=== PATIENT | female | born 1955 | race African-American/Black ===

== ENCOUNTER 2023-03-09 07:59 | Observation (INO) ==
--- NOTE | 2023-01-29 14:36 | PAT Medication Instructions ---
Medication Instructions Date of Service January 29, 2023 Home Medications Fish Oil 1 cap PO QAM albuterol sulfate 90 mcg/actuation aerosol inhaler 2 puff inhalation QID PRN Shortness Of Breath amiloride 5 mg-hydrochlorothiazide 50 mg tablet 0.5 tab PO QAM ascorbic acid (vitamin C) 1,000 mg tablet (Vitamin C) 1 g PO QAM fluticasone propionate 50 mcg/actuation nasal spray,suspension 2 spray intranasal DAILY PRN Congestion irbesartan 150 mg tablet 150 mg PO QAM metoprolol succinate 50 mg tablet,extended release 24 hr 25 mg PO QAM montelukast 10 mg tablet (Singulair) 10 mg PO QAM multivit-iron 18 mg-folic acid 400 mcg-calcium 500 mg-minerals tablet (Women's One Daily) 1 tab PO QAM omega-3 fatty acids 1,000 mg PO QAM semaglutide 1 mg/dose (4 mg/3 mL) subcutaneous pen injector (Ozempic) 1 mg subcut Q7D vitamin B complex 1 tab PO QAM Continue as directed semaglutide 1 mg/dose (4 mg/3 mL) subcutaneous pen injector (Ozempic) 1 mg subcut Q7D STOP taking 2 weeks before surgery Fish Oil 1 cap PO QAM omega-3 fatty acids 1,000 mg PO QAM DO NOT take the morning of surgery amiloride 5 mg-hydrochlorothiazide 50 mg tablet 0.5 tab PO QAM ascorbic acid (vitamin C) 1,000 mg tablet (Vitamin C) 1 g PO QAM irbesartan 150 mg tablet 150 mg PO QAM multivit-iron 18 mg-folic acid 400 mcg-calcium 500 mg-minerals tablet (Women's One Daily) 1 tab PO QAM vitamin B complex 1 tab PO QAM Take morning of surgery With a small sip of water, OTHERWISE NOTHING TO EAT OR DRINK AFTER MIDNIGHT: albuterol sulfate 90 mcg/actuation aerosol inhaler 2 puff inhalation QID PRN Shortness Of Breath (use if needed; please bring with you to hospital day of surgery if possible) fluticasone propionate 50 mcg/actuation nasal spray,suspension 2 spray intranasal DAILY PRN Congestion (if needed) metoprolol succinate 50 mg tablet,extended release 24 hr 25 mg PO QAM montelukast 10 mg tablet (Singulair) 10 mg PO QAM Take evening before surgery albuterol sulfate 90 mcg/actuation aerosol inhaler 2 puff inhalation QID PRN Shortness Of Breath (if needed) fluticasone propionate 50 mcg/actuation nasal spray,suspension 2 spray intrana osmin DAILY PRN Congestion (if needed) Other Notes If you have any questions please call us at [phone] or [phone] or [phone] or [phone]
--- NOTE | 2023-01-31 10:37 | Anesthesiology Consultation ---
Date of Service January 31, 2023 Assessment & Plan (1) Encounter for pre-operative examination: - Check BSG AM DOS - Outpatient joint assessment: Pt currently scheduled for inpatient pathway. If surgeon requests review for outpatient joint pathway, patient is an acceptable candidate for outpatient joint program from anesthesia standpoint pending surgeon's office assessment that patient is motivated, has good support and completes [facility] preop requirements. - COVID screening: Per assessment on 01/31: No known COVID-19 positive contacts. Travel screen- negative since 12/2022. Patient was Covid positive 01/03/23 (home test), shortness of breath- treated w/paxlovid- SOB has resolved. Does also have chronic allergy-related cough, unchanged. Covid test done at PAT visit 01/31/23- result was negative. - Cardiology visit (03/28/22): "06/2018 ECHO- LVEF 55-60%, AoR 3cm, PaP 24mmhg, DD1.. Dyspneawith exertion with wearing a mask, with concurrent asthma, with famhx SCD, monitor.. Palpitationslikely PAC's/PVC's by description, currently asymptomatic, monitor.. Hypertension.. Controlled.. Dyslipidemiawith no clinical ASCVD but DM.. Declining statins, continue risk factor modification with weight loss, diet and exercise" > One year f/u recommended. Chart Review Chart Review: Acceptable Risk for Surgery and Patient seen in Pre Admission Testing Teaching & Discussion Pre-Anesthesia Teaching/Discussion Notes: Instructed NPO after midnight before surgery,except medications with 15 cc of water. Medication instructions provided according to the PAT guidelines. History Surgery Operation Date: 03/09/23 07:00 Proposed Procedures p Right Total Knee Arthroplasty - Jose Alberto Valente MD Height/Weight Height: 5 ft 4 in Weight: 87.7 kg Allergies Allergy/AdvReac Type Severity Reaction Status Date / Time amlodipine [From Norvasc] Allergy Unknown throat Verified 01/29/23 13:03 swelling Iodinated Contrast Media Allergy Unknown throat Verified 01/29/23 13:03 swelling ofloxacin [From Floxin] Allergy Unknown trouble Verified 01/29/23 13:03 breathing; throat swelling Penicillins Allergy Unknown syncope; Verified 01/29/23 13:03 shortness of breath aspirin AdvReac Unknown bloody Verified 01/31/23 10:52 diarrhea metformin AdvReac Unknown bloody Verified 01/31/23 10:52 diarrhea Medications Home Medications Medication Instructions Recorded Confirmed Last Taken Fish Oil 1 cap PO QAM 01/29/23 01/29/23 Unknown albuterol sulfate 90 mcg/actuation 2 puff inhalation QID PRN 01/29/23 01/29/23 Unknown aerosol inhaler Shortness Of Breath amiloride 5 mg-hydrochlorothiazide 0.5 tab PO QAM 01/29/23 01/29/23 Unknown 50 mg tablet ascorbic acid (vitamin C) 1,000 mg 1 g PO QAM 01/29/23 01/29/23 Unknown tablet (Vitamin C) fluticasone propionate 50 2 spray intranasal DAILY PRN 01/29/23 01/29/23 Unknown mcg/actuation nasal Congestion spray,suspension irbesartan 150 mg tablet 150 mg PO QAM 01/29/23 01/29/23 Unknown metoprolol succinate 50 mg 25 mg PO QAM 01/29/23 01/29/23 Unknown tablet,extended release 24 hr montelukast 10 mg tablet 10 mg PO QAM 01/29/23 01/29/23 Unknown (Singulair) multivit-iron 18 mg-folic acid 400 1 tab PO QAM 01/29/23 01/29/23 Unknown mcg-calcium 500 mg-minerals tablet (Women's One Daily) omega-3 fatty acids 1,000 mg PO QAM 01/29/23 01/29/23 Unknown semaglutide 1 mg/dose (4 mg/3 mL) 1 mg subcut Q7D 01/29/23 01/29/23 Unknown subcutaneous pen injector (Ozempic) vitamin B complex 1 tab PO QAM 01/29/23 01/29/23 Unknown Past Medical History Medical History Asthma due to seasonal allergies Environmental allergies Chronic cough r/t environmental allergies Degenerative arthritis of knee, bilateral Diabetes History of conjunctivitis 11/2022, prescribed eye drops by PCP- resolved History of COVID-19 01/03/23 (home test), shortness of breath- treated w/paxlovid History of palpitations Follows with Dr. Keys Suspected PACs/PVCs per cardiology, recommendation to monitor Hx of cancer of uterus Hx of migraines Hypertension Exercise / Class Metabolic Activity III < 4 Walking/Shop/Light housework (one FS (no CP, occasional SOB)) Past Surgical History Surgical History History of appendectomy History of esophagogastroduodenoscopy (EGD) History of hysterectomy Hx of cardiac catheterization 2009 > no stents Hx of colonoscopy Past Anesthesia History No Hx of Anesthesia Complications and No Family Hx of Anesthesia Complications History of PONV No Hx of PONV and Hx of Motion Sickness (+ vertigo) Social History Smoking Status: Never smoker Do You Dip or Chew Tobacco: No Hx Alcohol Use: No Hx Substance Use: No substance use type: does not use Review of Systems Chronic allergy-related cough, unchanged. Occasional palpitations. Patient denies chest pain, shortness of breath, fever, chills, wheezing. Physical Exam Vital Signs VITALS BP 109/71 P 85 TEMP 98.3 SP02 97%RA RESP 16 PHYSICAL Full cervical extension range of motion. Full TMJ range of motion. TMD 4 finger breaths Mallampati Score 1 Dentition: intact, several crowns Lungs: clear throughout to auscultation Cardiac: regular rate and rhythm, no murmurs noted Spine: normal Carotid arteries: negative bruit Extremities: no LE edema Lab Results Anesthesia Preop Results Results Anesthesia Widget: WBC 6.85 K/ul (4.8-10.8) 01/31/23 Hgb 12.5 g/dl (12.0-16.0) 01/31/23 Hct 36.3 % (37.0-47.0) L 01/31/23 Plt 241 K/uL (130-400) 01/31/23 Na 135 mmol/L (136-145) L 01/31/23 K 3.8 mmol/L (3.5-5.1) 01/31/23 Cl 98 mmol/L (98-107) 01/31/23 CO2 29 mmol/L (21-32) 01/31/23 BUN 19 mg/dl (6-23) 01/31/23 Creat 0.77 mg/dl (0.6-1.2) 01/31/23 Glucose Level 131 mg/dl (70-99(Fasting)) H 01/31/23 PT 10.7 Seconds (9.0-12.0) 01/31/23 PTT 28.2 Seconds (21.0-31.0) 01/31/23 INR 1.0 (0.9-1.1) 01/31/23 HA1c 6.4 % (4.5-5.6) H 01/31/23 Blood Type O Positive 01/31/23 Antibody Screen NEGATIVE 01/31/23 Testing Electrocardiogram Date: 01/31/23 NSR at 85bpm. Chest X-Ray Date: 01/31/23 FINDINGS: PA and lateral chest radiographs are obtained. No prior studies are available for comparison at the time of dictation. The cardiomediastinal silhouette is unremarkable. The lungs and pleural spaces are clear. There is no pneumothorax. The skeletal structures are osteopenic. The bony thorax appears intact. IMPRESSION: No active disease in the chest. Echocardiogram Date: 06/26/18 EF 55-60%. Grade I DD. No significant valvular disease. COVID-19 Risk Screen Screening Information COVID-19 Screen Date: 01/31/23 Exposure 21 Days Family/Household +COVID Last 21 Days: No Exposure 10 Days Any COVID Exposure Last 10 Days: No Symptoms Last 10 Days Experienced COVID Sx Last 10 Days: No + COVID 0-90 Days COVID + in Last 0-90 Days: No
--- NOTE | 2023-03-03 20:23 | History and Physical Report ---
DATE OF ADMISSION: 03/09/2023 CHIEF COMPLAINT: Bilateral knee pain and discomfort, right side greater than left. 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 She comes with a 20-year history of chronic r ight knee pain and discomfort and describes it has gotten worse over time. She has been through [facility] conservative treatment out in the [place] area. She had multiple kinds of injections, which have become less successful over time. She had gel shots as well without much relief. She has got global pain. She has noted progressive deformity to her knees as well. She now will like to have he r knees fixed. She does not walk due to the pain. PAST MEDICAL HISTORY: 1. Diabetes with an A1c of 6.4. 2. Hypertension. 3. Asthma. PAST SURGICAL HISTORY: Includes: 1. Hysterectomy. 2. Appendectomy. ALLERGIES: PENICILLIN, WHICH CAUSES RESPIRATORY ISSUES. ALSO HAS GI BLEEDING WITH ASPIRIN. SHE CECY CRIBES ALLERGIES TO FLUOXETINE AND METFORMIN. CURRENT MEDICATIONS: Include: 1. Benzonatate. 2. Albuterol. 3. Vitamin B complex. 4. Tobramycin ophthalmic ointment. 5. Riverside-3. 6. Irbesartan. 7. Montelukast. 8. Ozempic. 9. Fluticasone. 10. Metoprolol. 11. Amiloride/hydrochlorothiazide. 12. Insulin. 13. Cholecalciferol. SOCIAL HISTORY: A 67-year-old female patient. 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 She i s . Several children. Does not drink. No tobacco use. FAMILY HISTORY: Significant for diabetes and hypertension. REVIEW OF SYSTEMS: Negative for history of DVT or PE. No chest pain or shortness of breath. No ble eding problems. PHYSICAL EXAMINATION: GENERAL: Shows a pleasant middle-aged black female. Looks to be in good health. HEENT: Benign. NECK: Supple. No lymphadenopathy. LUNGS: Clear to auscultation. HEART: Has a regular rate and rhythm. ABDOMEN: Soft, nontender, nondistended. EXTREMITIES: Grossly neurovascularly intact except as follows. Examination of the right knee revealed patient ambulates independently. She has got valgus alignment to her knee, which is increased with weightbearing. Her knee is pretty stiff with about 5-10 degree flexion contracture, only bends to about 100-105 degrees. No pain with hip motion. Examination of the left knee reveals a slight varus deformity. Minimal tenderness. Small knee effusion. Range of motion 5-125. X-RAYS: X-rays of both knees were reviewed. It shows advanced right knee DJD. She has got complete loss of her lateral joint space. She has subchondral sclerosis. She has got a loose body in the la teral patellar pouch. She has got fairly advanced medial compartment arthritis in the left knee. 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 Right side bothers her more than the left. Would like to proceed with treatment/knee replacement. PLAN: We will take her to the operating room and do right total knee replacement. The risks and warren efits of this procedure were explained to the patient and include but not limited to DVT, PE, , infection, neurological injury, vascular injury, bleeding problem, pain, limited range of motion, sti ffness, failure to relieve her symptoms, etc. The patient understands and desires to proceed. Infor med consent was obtained. Due to her history of ASPIRIN difficulties, we will use Xarelto for DVT prophylaxis. We will also ho ld off on the Ancef due to her apparent PENICILLIN allergy and give her vancomycin. She is planning to be discharged to home using [facility] program as well as some family assistance. Job ID: [id number]
[~2023-03-09 07:59] MED LIST: ACETAMINOPHEN 500 MG TAB PO SCH; BUPIVACAINE 0.5 % 5 MG/1 ML PF 10ML VIAL ONE; BUPIVACAINE LIPOSOME/PF 266 MG, BUPIVACAINE/EPINEPHRINE 50 ML, SODIUM CHLORIDE 0.9% PF ... INFIL SCH; CeleBREX 200 MG CAP PO SCH; FAMOTIDINE 20 MG TAB PO SCH; LR 500ML BOLUS, THEN 15ML/HR IV SCH; LR 60ML/HR IV SCH; METOCLOPRAMIDE HCL 10 MG TABLET PO SCH; ROPIVACAINE 0.5% 5 MG/ML 30 ML VIAL ONE; TRANEXAMIC ACID 1,000 MG **IV Intra-op IV SCH; VANCOMYCIN CONSULT ACTIVE PRN
--- NOTE | 2023-03-09 08:35 | History & Physical Bridge Note ---
Date of Service March 09, 2023 History & Physical Bridge Note I have examined the patient, reviewed the History & Physical and in the interval since the performance of the History & Physical I have noted the following changes of clinical significance: no changes noted
[2023-03-09] MEDS: ALLERGY Noted to ORDERED Medication SCH (08:51)
[2023-03-09] MEDS ORDERED: VANCOMYCIN HCL 1,250 MG in SODIUM CHLORIDE 0.9% 500 ML IV ONE (09:00)
[2023-03-09] MEDS ORDERED: Nursing to Pharmacy Communication SCH (09:00)
[2023-03-09] MEDS ORDERED: PROPOFOL IV EMULSION 10 MG/ML 20 ML VIAL IV ONE ×2 (09:18→12:06)
[2023-03-09] MEDS ORDERED: MIDAZOLAM HCL 1 MG/ML 2ML VIAL ONE ×2 (09:18→10:07)
[2023-03-09] MEDS ORDERED: fentaNYL citrate PF 100 MCG/2 ML VIAL ONE (09:19)
[2023-03-09] MEDS ORDERED: VANCOMYCIN HCL 1000MG/20ML VIAL ONE (09:50)
[2023-03-09] MEDS ORDERED: SODIUM CHLORIDE 0.9% PF 50 ML VIAL ONE (09:50)
[2023-03-09] MEDS ORDERED: BUPIVACAINE/EPINEPHRINE 0.25% 1:200,000 30 ML VIAL ONE (09:50)
[2023-03-09] MEDS ORDERED: BUPIVACAINE LIPOSOME 1.3% 266 MG/20 ML VIAL ONE (09:51)
[2023-03-09] MEDS ORDERED: DEXAMETHASONE SOD INJ 4 MG/ML VIAL ONE (12:06)
[2023-03-09] MEDS ORDERED: PHENYLEPHRINE 100MCG/ML 5ML SYR ONE (12:06)
[2023-03-09] MEDS ORDERED: KETOROLAC 30 MG/ML VIAL ONE (12:06)
[2023-03-09] MEDS ORDERED: NEOSTIGMINE METHYLSULFATE 1 MG/ML 10ML VIAL ONE (12:06)
--- NOTE | 2023-03-09 12:24 | Operative Report ---
PG Post Operative Report Pre & Post Diagnosis Operation Date: 03/09/23 10:20 Pre-Op Diagnosis: Degenerative Joint Disease Knee Right Post-Op Diagnosis: Degenerative Joint Disease Knee Right I identified the patient and participated in the time-out.: Yes Procedure Operation Date: 03/09/23 10:20 Actual Procedures p Right Total Knee Arthroplasty(Right) - Jose Alberto Valente MD Surgeon Jose Alberto Valente MD Validation Technician Iraj Tadeo Estimated Blood Loss 50 Findings Consistent with Post-Op Diagnosis Operative findings were advanced right knee DJD. She extensive grade 4 cocm-ob-eope disease of the lateral compartment with significant osteophytes laterally and a fixed valgus deformity. Some spotty grade 4 changes medially and in the patellofemoral joint. She had fairly osteopenic bone particular in the medial side of the knee. Moderate-sized knee joint effusion. 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 She been through extensive conservative treatment became less successful with time. She failed conservative measures elected proceed with total knee arthroplasty. Description of Procedure Operative implants consist of: 1 Biomet Vanguard size 65 right posterior stabilized femoral component. 2. Biomet size 67 tibial tray. 3. 12 mm posterior stabilized polyethylene plus insert. 4. 31 x 8 all poly patella. The patient was taken the operating, identified, and placed on the operating table supine position protectors were properly padded. IV antibiotics tried by anesthesia team. A spinal anesthetic and abductor canal block had provided provided in the holding area. Montaño catheter was placed in sterile fashion. Right thigh high tourniquet was then placed in the right lower extremities and prepped and draped in usual sterile fashion. The right leg was elevated and exsanguinated with use of an Esmarch and the tourniquet was placed at 300 mmHg. An anterior approach to the right knee was then performed through a longitudinal incision centered over the patella. Sharp dissection carried through subcutaneous tissue down the extensor mechanism. A medial parapatellar arthrotomy incision was made. Some subperiosteal dissection was carried out medially. The fat pad was resected from Neath patella tendon. Lateral patellofemoral ligament was released. Patella subluxated laterally and the knee was flexed with the osteophytes taken on distal femur. The ACL was taken off the distal femur along with the PCL. The tibia subluxated anteriorly. The external tibial alignment jig was then placed in the interface the tibia and adjusted 12 mm medially. Proximal tibial cut was made remove 3 to 4 mm of bone from the medial side. Tibia sized to a size 67. Attention drawn the femur. The distal femur was entered with a sharp drop with intramedullary canal was suction. A right 5 degree valgus cutting guide was placed. This femoral cutting block was pinned in place. Distal femoral cut was made to take an additional 3 mm of bone off distal femur. The knee was brought out into extension. I did release the IT band in the posterior lateral capsule taking great care to protect the peroneal nerve at all times. The knee was flexed. The femur was then sized to a size 65. The AP cutting block was pinned parallel to the epicondylar axis which was 4 degrees of external rotation. Anterior cut, anterior chamfer, posterior cut, posterior chamfer cuts were made. The box cutting guide was placed in a just slight lateral and the box cut was made. The knee was flexed. The remnants of the medial lateral menisci were excised. The osteophytes taken off the posterior aspect of femur. A trial femoral component was placed through the tibial tray was pinned in maximum external rotation and the drill and stem punch used to create defect in proximal tibia for the tibial tray. I did release the popliteus in order to equalize the flexion gap. The knee was then trialed and the 12 mm insert fit most appropriately. There is still just a little bit of laxity in extension so we did place a PS plus insert. Attention drawn the patella. The patella was cleaned of all soft tissues. Patella thickness measured 22 mm in thickness was cut down to 13. Was sized to a size 31 patella. The lug holes were drilled for the 31 patella. The lateral osteophytes removed. Patella button was placed. Knee was taken through range of motion patella tracked nicely with no thumbs test. Attention drawn to placing permanent components. Nupathe all trial components were removed. Bone plug was placed in the distal femur limit blood loss. Double batch Palacos G cement was mixed. A Biomet Recochemguard size 65 right posterior stabilized femoral component, size 67 tibial tray, a 12 mm posterior stabilized polyethylene plus insert and a 31 Y8 all Paller patella then cemented in place. Knee was brought into full extension till cement hardened. Final cement check was then performed. The pericapsular tissues were injected with total 100 cc of combination of 20 cc of Exparel, 30 cc normal saline, 50 cc of quarter percent Marcaine with epinephrine. Patient did receive 1 g tranexamic acid. The tourniquet was then let down for total tourniquet time of 56 minutes. Hemostasis assured use electrocautery. Extensor mechanism closed with combination 1 PDS suture and 1 Vicryl suture in [id number] fashion. Extensor mechanism checked found to be intact and the subcutaneous tissue then closed with 2-0 Dexon suture in a buried interrupted fashion the skin was closed skin belem. Leg was then cleaned and dried and a sterile dressing was Xeroform, 4 fours, sterile cast padding, Gadiel bandage were applied. The patient then transferred to the recovery room in stable condition. The patient tolerated the procedure well and there were no complications. Edvin Shea, my physician operational assistant, was present for the entire procedure. His assistance was essential and required for appropriate patient positioning, prepping and draping, surgical exposure, performing the technical details of the operation, placement the implants, closure of the wound, and placement of the sterile bandage. I attest to the content of the Intraoperative Record and any orders documented therein. Any exceptions are noted below.
--- NOTE | 2023-03-09 12:54 | XRay Report ---
XR knee RT 1 or 2V routine HISTORY: 67 years-old Female Surgical Post Op right knee arthroplasty COMPARISON: Radiographs 01/22/2023 TECHNIQUE: 2 views of the right knee FINDINGS: Total joint arthroplasty with patellar resurfacing. Anterior midline skin belem are noted along wit h expected postoperative soft tissue swelling with deep tissue air. No acute fracture, dislocation or unexpected opaque foreign body. IMPRESSION: Total joint arthroplasty with expected postoperative changes. ACT 112: Negative or not required by law. The above report was generated using voice recognition software. It may contain grammatical, syntax o r spelling errors. Electronically signed by: Wale Wallace M.D. 03/09/2023 12:52 PM
--- NOTE | 2023-03-09 13:26 | Anesthesiology Progress Note ---
Date of Service March 09, 2023 Anesthesia Post Procedure Vital Signs Vital Signs: Temp Pulse Pulse Resp BP Pulse Ox O2 Del Method 03/09/23 13:15 93 H 21 114/78 99 Room Air 03/09/23 13:00 77 19 117/72 100 Room Air 03/09/23 12:50 97.9 F 79 17 116/75 99 Room Air 03/09/23 12:40 78 18 114/72 100 Room Air 03/09/23 12:30 78 17 112/68 100 Oxymask 03/09/23 12:23 97.5 F L 90 15 106/62 100 Oxymask 03/09/23 08:53 98.4 F 80 20 111/77 95 Room Air O2 Flow Rate 03/09/23 13:15 03/09/23 13:00 03/09/23 12:50 03/09/23 12:40 03/09/23 12:30 4 03/09/23 12:23 6 03/09/23 08:53 Pain Intensity Right Knee: Pain Intensity: 0 Transfer of Care Handoff Completed per policy Notes Mental Status: alert / awake / arousable and participated in evaluation Patient Amnestic to Procedure: Yes Nausea / Vomiting: adequately controlled Pain: adequately controlled Airway Patency, RR, SpO2: stable & adequate BP & HR: stable & adequate Hydration State: stable & adequate Neuraxial Anesthesia: was administered and sensory block is resolving Anesthetic Complications: no major complications apparent and Pt Satisfied with anesthetic care
[2023-03-09] MEDS ORDERED: GLUCOSE 10 TAB/TUBE PO PRN (14:11)
[2023-03-09] MEDS ORDERED: bisacodyL 10 MG SUPP PR PRN (14:11)
[2023-03-09] MEDS ORDERED: ONDANSETRON INJ 2 MG/ML 2 ML VIAL IV PRN (14:11)
[2023-03-09] MEDS ORDERED: GLUCAGON FOR INJ 1 MG VIAL SQ PRN (14:11)
[2023-03-09] MEDS ORDERED: GLUCOSE 40% GEL 15 GM TUBE PO PRN (14:11)
[2023-03-09] MEDS ORDERED: CARBOHYDRATES FOR HYPOGLYCEMIA PO PRN (14:11)
[2023-03-09] MEDS ORDERED: ALBUTEROL HFA 8 GM INHALER INH PRN (14:11)
[2023-03-09] MEDS ORDERED: PHARMACY GLYCEMIC MGMT CONSULT PRN (14:11)
[2023-03-09] MEDS ORDERED: ALUMINUM/MAGNESIUM SUSP 30 ML UDC PO PRN (14:11)
[2023-03-09] MEDS ORDERED: oxyCODONE HCL IR 5 MG TAB (IMMEDIATE RELEASE) PO PRN (14:11)
[2023-03-09] MEDS ORDERED: HYDROmorphone INJ 0.5 MG/0.5 ML SYR IV PRN (14:11)
[2023-03-09] MEDS ORDERED: VANCOMYCIN CONSULT ACTIVE PRN (14:11)
[2023-03-09] MEDS ORDERED: DEXTROSE 50% 50 ML SYRINGE IV PRN (14:11)
[2023-03-09] MEDS ORDERED: MAGNESIUM HYDROXIDE SUSP 30 ML UDC PO PRN (14:11)
[2023-03-09] MEDS ORDERED: NALOXONE HCL 0.4 MG/1 ML VIAL/CARP IV PRN (14:11)
[2023-03-09] MEDS ORDERED: METOCLOPRAMIDE HCL INJ 5 MG/ML 2 ML VIAL IV PRN (14:11)
[2023-03-09] MEDS ORDERED: NON-FORMULARY MEDICATION (Semaglutide [Ozempic] 1 mg/dose (4 mg/3 mL) Pen Injector) SQ SCH (14:11)
[2023-03-09] MEDS: SODIUM CHLORIDE 0.9% 1000ML 1,000 ML IV SCH (14:21)
[2023-03-09] MEDS ORDERED: FLUTICASONE PROPIONATE NA SPR 16 GM BTL NAE PRN (14:30)
--- NOTE | 2023-03-09 14:43 | Pharmacy Report ---
Pharmacy Glycemic Short Note 2 - Date of Service March 09, 2023 - Glycemic Short BSG Results (Last 24 hours): 03/09/23 03/09/23 03/09/23 09:05 10:45 12:25 POC Glucose 114 H 112 H 143 H OUTPATIENT ANTIDIABETIC REGIMEN: * Ozempic 1 mg SQ every Sunday (last took 03/07/23) * HbA1C = 6.4% (01/31/23 ASSESSMENT: * Ms Cat is a 67 y/o F with a PMH of T2DM who presents for R TKA. She is POD 0. She received dexamethasone 8 mg IV intraoperatively. * Preop BSG was 114 mg/dL- postop BSG was 143 mg/dL. * Patient took her Ozempic 2 days ago so this agent is still effective. * Since preop BSG < 140 mg/dL, will defer on basal insulin and continue with tight Novolog. * Overnight checks to ensure tight coverage. PLAN FOR INPATIENT GLYCEMIC CONTROL: * Basal insulin * deferred * Bolus insulin * NovoLog per scale ACHS or Q6hrs while NPO * Goal Range: Low 110 mg/dL - High 140 mg/dL * Correction Factor: 25 mg/dL/unit * Nutritional / Prandial insulin per carb ratio of 1 unit per 7 grams CHO consumed
[2023-03-09] MEDS: ACETAMINOPHEN 500 MG TAB PO SCH ×2 (15:43→21:16)
[2023-03-09] MEDS: KETOROLAC TROMETHAMINE 15 MG/ML VIAL IV SCH ×2 (15:43→21:12)
[2023-03-09] MEDS: ASCORBIC ACID 500 MG TAB PO SCH (15:44)
[2023-03-09] MEDS: INSULIN ASPART PER UNIT CHARGE SC SCH ×4 (16:01→23:05)
[2023-03-09] MEDS ORDERED: ceFAZolin 2000MG 2,000 MG/15 ML SYR IV SCH (18:30)
[2023-03-09] MEDS ORDERED: TRANEXAMIC ACID / 0.7% NACL 1,000 MG/100 ML BAG IV SCH (18:30)
[2023-03-09] MEDS ORDERED: VANCOMYCIN HCL 1,250 MG in SODIUM CHLORIDE 0.9% 500 ML IV SCH (21:00)
[2023-03-09] MEDS ORDERED: SENNA 8.6 MG TAB PO SCH (21:00)
[2023-03-09] MEDS: SENNA 8.6 MG TAB PO SCH (21:10)
[2023-03-09] MEDS: ASPIRIN 81 MG ECTAB PO SCH (21:11)
[2023-03-09] MEDS: DOCUSATE SODIUM 100 MG CAP PO SCH (21:12)
[2023-03-10] MEDS: SODIUM CHLORIDE 0.9% 1000ML 1,000 ML IV SCH ×2 (01:42→09:15)
[2023-03-10] MEDS: KETOROLAC TROMETHAMINE 15 MG/ML VIAL IV SCH ×2 (03:05→08:10)
[2023-03-10] MEDS: INSULIN ASPART PER UNIT CHARGE SC SCH ×3 (03:46→12:11)
[2023-03-10] MEDS: ACETAMINOPHEN 500 MG TAB PO SCH (05:30)
[2023-03-10 05:59] LABS: Hematocrit (blood only) 26.6 % (37.0-47.0); Mean Corpuscular Hemoglobin 29.8 pg (25.0-34.0); Mean Corpuscular Hgb Conc 33.8 g/dL (32.0-36.0); Mean Corpuscular Volume 88.1 fL (80.0-100.0); Mean Platelet Volume 10.4 fL (9.4-12.4); Platelet Count 194 K/uL (130-400); RDW Coefficient of Variation 12.2 % (11.5-14.5); RDW Standard Deviation 39.2 fL (36.4-46.3); Red Blood Count 3.02 M/uL (4.20-5.40); White Blood Count 12.46 K/ul (4.8-10.8)
[2023-03-10 06:16] LABS: Calcium 8.1 mg/dl (8.6-10.3); Creatinine Clr Calc Pharmacy 60.4 ml/min; Est GFR (African American) 70.9 ml/min; Est GFR (Non-African American) 61.2 ml/min; Potassium 3.6 mmol/L (3.5-5.1)
[2023-03-10] MEDS: ALLERGY Noted to ORDERED Medication SCH (07:03)
--- NOTE | 2023-03-10 07:57 | Progress Notes ---
DATE OF SERVICE: 03/10/2023. SUBJECTIVE: A 67-year-old female postoperative day 1 from a right knee replacement. She is doing we ll. Pain is controlled. Pretty good night. No chest pain or shortness of breath. Not feeling dizz y or lightheaded. OBJECTIVE: VITAL SIGNS: Temperature is 36.9. Vital signs are stable. GENERAL: Shows a pleasant, elderly female. She was walking around her room this morning with a walk er. LUNGS: Clear to auscultation. HEART: Regular rate and rhythm. ABDOMEN: Soft, nontender, nondistended. EXTREMITIES: Grossly neurovascularly intact except as follows. Examination of the right knee reveals the dressing to be clean, dry and intact. She can dorsiflex an d plantarflex her foot appropriately. She is neurologically intact. LABORATORY DATA: Hemoglobin 9.0. Hematocrit 26.6. Electrolytes are stable. ASSESSMENT: A 67-year-old female postoperative day 1 from a right knee replacement, doing pretty wel l. Pain is controlled. She is neurologically intact. Slightly anemic, but asymptomatic. PLAN: 1. DVT prophylaxis includes thigh-high TEDs, SCDs, and aspirin twice a day. 2. PT/OT, weightbear as tolerated. Right total knee protocol. 3. Pain control, doing well with current pain regimen. 4. Disposition: Plan is to discharge her home with home health later today if she does okay in ther apy. Job ID: [id number]
[2023-03-10] MEDS: DOCUSATE SODIUM 100 MG CAP PO SCH (08:08)
[2023-03-10] MEDS: ASPIRIN 81 MG ECTAB PO SCH (08:09)
[2023-03-10] MEDS: ASCORBIC ACID 500 MG TAB PO SCH (08:09)
[2023-03-10] MEDS: SENNA 8.6 MG TAB PO SCH (08:09)
[2023-03-10] MEDS ORDERED: NON-FORMULARY MEDICATION (Ascorbic Acid (Vitamin C) [Vitamin C] 1,000 mg Tablet) PO SCH (09:00)
[2023-03-10] MEDS ORDERED: OMEGA-3 (PURIFIED FISH OIL) 1 GM CAP PO SCH (09:00)
[2023-03-10] MEDS ORDERED: CEROVITE ADV FORMULA TAB PO SCH (09:00)
[2023-03-10] MEDS ORDERED: MULTIVITAMIN TAB PO SCH (09:00)
[2023-03-10] MEDS ORDERED: NON-FORMULARY MEDICATION (Omega-3 Fatty Acids Capsule) PO SCH (09:00)
[2023-03-10] MEDS ORDERED: VITAMIN B COMPLEX TAB PO SCH (09:00)
[2023-03-10] MEDS ORDERED: LOSARTAN POTASSIUM 50 MG TAB PO SCH (09:00)
[2023-03-10] MEDS ORDERED: MONTELUKAST SODIUM 10 MG TABLET PO SCH (09:00)
[2023-03-10] MEDS ORDERED: METOPROLOL SUCC 25MG EXT REL TAB PO SCH (09:00)
--- NOTE | 2023-03-13 15:13 | Discharge Summary ---
Date of Service March 13, 2023 Discharge Data Procedures Performed Operation Date: 03/09/23 10:20 Actual Procedures p Right Total Knee Arthroplasty(Right) - Jose Alberto Valente MD Hospital Course (1) Status post total right knee replacement: This is a 67 year old patient admitted on 03/09/23 and underwent total knee arthroplasty. She tolerated the procedure well and there were no complications. Transferred to the PACU post op and later to the orthopedic floor for further care. She was given ancef for antibiotic prophylaxis. She was also given RANDY stockings, SCDs, and aspirin for DVT prophylaxis. Hemoglobin, hematocrit, and vital signs were monitored during her hospital stay and remained stable. Did not require any blood transfusions. There were no complications during her hospital stay. By post op day #1 the patient was tolerating a regular diet, pain was reasonably controlled with oral pain medicine, and she was participating in physical therapy. On post op day #1 the patient was discharged home and set up with home health care. She was given printed discharge instructions including prescriptions for extra strength tylenol, aspirin, ketorolac, zofran, senokot, and oxycodone. Continue physical therapy, weight bearing as tolerated. Continue RANDY stockings. Follow up approximately 2 weeks post op or sooner if there are problems or concerns. Coding Level of Care Code None Diagnoses Status post total right knee replacement Z96.651
== END 2023-03-10 12:41 | disposition home health service (06) ==
LOC: ASU 07:59 → 3E 07:59